=== PATIENT | female | born 2000 | race Caucasian/White ===

== ENCOUNTER 2021-02-08 20:26 | Emergency (ER) | payer OTHER ==
[~2021-02-08] VITALS: Ht 149.9 cm; Wt 51.1 kg
[2021-02-08 20:40] VITALS: BP 107/75
--- NOTE | 2021-02-08 20:56 | NUR ---
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
[2021-02-08] MEDS ORDERED: NEOSPORIN OINT. PKT 1 PACKET ONE (21:43)
== END 2021-02-08 22:07 | disposition home or self-care (01) ==
LOC: ED 22:01
DX: S61.301A Unspecified open wound of left index finger with damage to nail, initial encounter (principal); X58.XXXA Exposure to other specified factors, initial encounter; Y93.89 Activity, other specified; Y92.89 Other specified places as the place of occurrence of the external cause; Y99.8 Other external cause status
CPT/HCPCS: 99282